=== PATIENT | male | born 1940 | race Caucasian/White ===

== ENCOUNTER 2025-04-24 05:58 | Day surgery (SDC) | payer MEDICARE, SELFPAY ==
[2025-04-24] VITALS (11 sets, daily range): BP systolic 101–130; BP diastolic 74–96; BMI 20.1
[2025-04-24 08:45] LABS: Glucose - Point of Care 107 mg/dl (70-99)
[2025-04-24 08:54] LABS: ACT-LR - POC 363 Seconds (116-155)
[2025-04-24 09:04] LABS: ACT-LR - POC > 397 Seconds (116-155)
--- NOTE | 2025-04-24 09:22 | ITS.CL.ABL ---
Research Scientist - Ablation
Ablation
Procedure Report:
ELECTROPHYSIOLOGY ABLATION STUDY
DATE:: November 24, 2024 REFERRING: Dr. Thomas Perez
INDICATION: Persistent supraventricular tachycardia in the form of atrial fibrillation. Prior CTI flutter and PVI with cryoballoon, second procedure with left atrial posterior wall isolation and mitral flutter ablation who presents with tachycardia
induced cardiomyopathy and persistent atrial fibrillation refractory to dofetilide
HISTORY: See H and P. As above
ANTIARRHYTHMIC DRUG: Dofetilide
PRE-PROCEDURE CRISTEL: No intracardiac thrombus on intracardiac ultrasound
PRESENTING RHYTHM: Atrial fibrillation
'TIME-OUT': called and confirmed.
SEDATION/ANESTHESIA: provided via the anesthesia department using general anesthesia (LMA).
INTRAVENOUS/ARTERIAL ACCESS:
Right femoral venous - 8Fr
Left femoral venous - 8 Fr, 6 Fr
Ultrasound guidance for bilateral femoral vein access was utilized by me to obtain access with demonstration of normal anatomy
CHADS-VASC Score:
HAS-Bled Score
PROCEDURE:
1. A decapolar CS catheter was placed within the CS for mapping and pacing. This was also used as the reference catheter for the 3-D map. We initially attempted cardioversion with 200 J and 300 J synchronized biphasic shock but AF persisted. We
then performed ablation as below
2. The intracardiac ultrasound catheter was positioned in the RA to identify the FO for targeting of transseptal puncture, assist in identification of the pulmonary vein ostia, monitoring pre and post ablation pulmonary vein flow velocities,
monitoring for 'bubble' formation during RF application as a sign of thermal injury, and to monitor for pericardial effusion during mapping and ablation procedure. Left atrial size, LV ejection fraction, and pulmonary vein flows were monitored
pre and post ablation procedure. The other valves were inspected and found to be free of significant regurgitation or stenosis. Ejection fraction of 15 to 20% pre and post procedure with trace pericardial fusion pre and post procedure which is
unchanged. The patient's left atrium was noted to be greater than 7 cm with severe left atrial enlargement.
3. Half of the calculated heparin bolus was administered prior to the first transeptal puncture. Transseptal puncture was performed to diagnose RA and LA pressure so that safety of LA mapping and ablation could be further assessed, and to access
the left atrium and pulmonary veins for mapping and ablation. This entailed advancing an 8 Fr SL-1 sheath with dilator into the superior vena cava and withdrawing both (monitoring intracardiac ultrasound, fluoroscopy and tip pressure) with the tip
oriented toward the atrial septum. The fossa ovalis was engaged (indicated by sudden displacement of the sheath tip as well as tenting of the fossa seen on intracardiac ultrasound). Left atrial access required a pass with the [place] needle
extended. Left atrial catheter position was confirmed by pressure monitoring (RA mean pressure 8 mm Hg and LA mean presure 14 mm Hg), LA saturation (99%), as well as fluoroscopy. The sheath was advanced over the dilator and positioned in the left
atrium. This procedure was repeated for the Agilis sheath. The remainder of the calculated heparin bolus was administered and heparin was
infused to maintain ACT at 300 -350 seconds throughout the case.
4. RA pacing was performed via the proximal decapolar poles and LA pacing was performed via the distal decapolr poles.
5. A quadrapolar catheter was first positioned at the His position for His Bundle recording which was tagged via the 3-D [employer] sytem, and then passed to the RVA for RV pacing and recording.
6. The 9 mm lattice catheter was placed in each of the LIPV, LSPV, RSPV and the RIPV.
7. Next, a 3-D map was created using [employer] system. A 3-D reconstructed CT image was compared to the 3-D [employer] map to assist in anatomic interpretation, mapping and ablation.
8. As AF persisted after attempted cardioversion we then mapped to the left atrium and atrial fibrillation. There was connection of the left superior pulmonary vein at the roof and anterior ligament of Sampson. There was atrial signal along the
roof of the left atrium and the floor of the left atrium although most of the posterior wall was isolated. There was sparse patchy electroanatomic voltage along the mitral isthmus at the mid isthmus portion.
We performed isolation of the lesser pulmonary vein with lesions at the roof and the appendage side of the ligament of Sampson from roof to floor and then a roofline across the left atrium from left superior pulmonary vein to right supra pulmonary
vein and a floor line from left inferior pulmonary vein to right inferior pulmonary was performed isolating the posterior wall all done with PFA. We then performed radiofrequency lesions at 400 W for 4 seconds right at the annulus and PFA from the
mid isthmus back towards the left inferior pulmonary vein. Additional substrate in the interatrial fossa and anterior substrate to the right superior pulmonary was also ablated. AF persisted throughout all these lesions and then we attempted
cardioversion with 1 300 J synchronized biphasic shock which did restore durable sinus rhythm and then we were able to confirm entrance and exit block in all 4 pulmonary veins, the posterior wall roof and floor of the left atrium, and block across
the mitral isthmus with intra isthmus conduction time of 140 ms.
9. We then performed pacing from the coronary sinus and there was block across the CTI at 140 ms with wide split doubles throughout the duration of the isthmus.
TOTAL FLOURO TIME: 10.3 minutes
TOTAL RF DURATION: 1 minutes
REVERSAL OF HEPARIN: 35 mg of protamine, slow IV administration
[id number] suture to each femoral vein
COMPLICATIONS:
None
Intracardiac US shows no pericardial effusion post ablation.
SUMMARY:
Complex left atrial mapping and ablation.
Reisolation of left superior pulmonary vein, roof floor and posterior wall substrate lines in the left atrium, reablation of the mitral isthmus bringing about persistent bidirectional block.
RECOMMENDATIONS:
1. Ambulate in 4 hours
2. Resume anticoagulation
3. Continue all current medications and repeat echocardiogram in 3 months
4. With any further recurrence he would require either switch to amiodarone which may be limited by bradycardia or consideration of MANAGER ANALYTICAL-D plus AVJ ablation.
Copy to: Dr. Thomas Perez
--- NOTE | 2025-04-24 14:21 | W.PN.UPDATE ---
Update Note
Progress Note Update
84 yo WM s/p PVI (same day). He denies cp, sob, luz diet, EKG SR, b/l groins c/d/i no HT, soft. He will resume Eliquis tonight and continue dofetilide. Activity restrictions reviewed. He will f/u Dr. Perez in 1 mo. He is for d/c home after 230p
if groin stable and able to void.
== END 2025-04-24 15:00 | disposition home or self-care (01) ==
LOC: CATH 05:58
PROVIDERS: ATTENDING PHYSICIAN Internal Medicine Cardiovascular Disease; FAMILY PHYSICIAN Family Medicine; OTHER PHYSICIAN Internal Medicine Cardiovascular Disease
DX: I48.19 Other persistent atrial fibrillation (principal); I42.8 Other cardiomyopathies; I47.10 Supraventricular tachycardia, unspecified; Z88.5 Allergy status to narcotic agent; I48.3 Typical atrial flutter; I48.4 Atypical atrial flutter; Z79.01 Long term (current) use of anticoagulants; Z79.899 Other long term (current) drug therapy
CPT/HCPCS: 93657; C1894; C1730; C1766; C1892; C1759; C1733; 82962; 85347; 93005; 93656